=== PATIENT | female | born 2000 | race African-American/Black ===

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

== ENCOUNTER 2021-03-19 13:37 | Emergency (ER) | payer MEDICAID ==
[~2021-03-19] VITALS: Ht 160 cm; Wt 50.0 kg
[2021-03-19] MEDS ORDERED: ASPIRIN CHEWABLE 81 MG TABLET. PO ONE (13:45)
[2021-03-19 14:02] LABS: BILIRUBIN,URINE NEGATIVE (NEG); CLARITY,URINE CLEAR; COLOR,URINE YELLOW; NITRITE,URINE NEGATIVE (NEG); PH,URINE 6.5 (<5.0-8.0); PROTEIN,URINE NEGATIVE (NEG-TRACE)
--- NOTE | 2021-03-19 14:07 | EKG ---
[facility] [address] [place] [address] Test Date: 2021-03-19 Test Time: 13:56:45 Pat Name: WILLI HICKS Department: Room: Gender: F Hosted Services Analyst: : 2000 Requested By: SÁNCHEZ HOLDER Order Number: [id number] Reading MD: Measurements Intervals [place] Rate: 83 P: 31 CA: 154 QRS: 80 QRSD: 72 T: 24 QT: 342 QTc: 402 Interpretive Statements SINUS RHYTHM T ABNORMALITY IN ANTEROLATERAL LEADS ABNORMAL ECG RI6.02 No previous ECG available for comparison
[2021-03-19 14:08] LABS: BARBITURATES NEG (NEG); BENZODIAZEPINES NEG (NEG); CANNABINOIDS POS (NEG); COCAINE NEG (NEG); METHADONE NEG (NEG); OPIATES NEG (NEG); PHENCYCLIDINE NEG (NEG)
[2021-03-19 14:11] LABS: AMPHETAMINE/METHAMPHETAMINE NEG (NEG)
[2021-03-19] MEDS ORDERED: KETOROLAC 15 MG/ML VIAL. IVP ONE (14:15)
[2021-03-19] MEDS ORDERED: ACETAMINOPHEN 500 MG TABLET PO ONE (14:15)
--- NOTE | 2021-03-19 14:15 | PHYS DOC ---
Past Medical History Past Medical History: Asthma Past Surgical History: No Surgical History Smoking Status: Never Smoker Alcohol Use: None Drug Use: None General Adult EDM: Chief Complaint: COUGH HPI: HPI: Patient is a 20 year old female who presents with 7 to 10 days of shortness of breath, cough, chest pain with cough, headache, fever, body aches. She was tested a week ago for Covid and it was negative. She is not vaccinated. She has a history of asthma. She does have an inhaler that she uses as needed. She is not taking anything for her symptoms. She is febrile upon arrival. Rates her pain a 10 out of 10. Denies syncope, dizziness, vision change, focal weakness, numbness or tingling, abdominal pain, nausea, vomiting, diarrhea. Review of Systems: Review of Systems: Constitutional: +fever or +chills. [] Eyes: Denies change in visual acuity. [] HENT: Denies nasal congestion or sore throat. [] Respiratory: + cough or +shortness of breath. [] Cardiovascular: Denies chest pain or edema. [] GI: Denies abdominal pain, nausea, vomiting, bloody stools or diarrhea. [] : Denies dysuria. [] Musculoskeletal: Denies back pain or joint pain. + Generalized body aches [] Integument: Denies rash. [] Neurologic: +headache, denies focal weakness or sensory changes. [] Endocrine: Denies polyuria or polydipsia. [] Lymphatic: Denies swollen glands. [] Psychiatric: Denies depression or anxiety. [] Heart Score: C/O Chest Pain: Yes Risk Factors: Risk Factors: DM, Current or recent (<one month) smoker, HTN, HLP, family history of CAD, obesity. Risk Scores: Score 0 - 3: 2.5% MACE over next 6 weeks - Discharge Home Score 4 - 6: 20.3% MACE over next 6 weeks - Admit for Clinical Observation Score 7 - 10: 72.7% MACE over next 6 weeks - Early Invasive Strategies Current Medications: Current Medications Medications (Trade) Dose Ordered Sig/Lily Start Time Stop Time Status Last Admin Dose Admin Acetaminophen (Tylenol) 1,000 mg 1X ONCE 03/19/21 14:15 03/19/21 14:16 Aspirin (Aspirin Chewable) 324 mg 1X ONCE 03/19/21 13:45 03/19/21 13:57 DC Ketorolac Tromethamine (Toradol 15mg Vial) 15 mg 1X ONCE 03/19/21 14:15 03/19/21 14:16 UNV Allergies: Allergies: Allergies Coded Allergies Type Severity Reaction Last Updated Verified No Known Drug Allergies 01/24/14 No Physical Exam: PE: Constitutional: Well developed, well nourished, no acute distress, non-toxic appearance. [] HENT: Normocephalic, atraumatic, bilateral external ears normal, oropharynx moist, no oral exudates, nose normal. [] Eyes: PERRLA, EOMI, conjunctiva normal, no discharge. [] Neck: Normal range of motion, no tenderness, supple, no stridor. [] Cardiovascular:Heart rate regular rhythm, no murmur [] Lungs & Thorax: Bilateral upper breath sounds clear lower diminished to auscultation [] Abdomen: Bowel sounds normal, soft, no tenderness, no masses, no pulsatile masses. [] Skin: Warm, dry, no erythema, no rash. [] Back: No tenderness, no CVA tenderness. [] Extremities: No tenderness, no cyanosis, no clubbing, ROM intact, no edema. [] Neurologic: Alert and oriented X 3, normal motor function, normal sensory function, no focal deficits noted. [] Psychologic: Affect normal, judgement normal, mood normal. [] Current Patient Data: Labs: Laboratory Tests Test 03/19/21 13:49 POC Urine HCG, Qualitative Hcg negative (Negative) Vital Signs: Vital Signs Date Time Temp Pulse Resp B/P (MAP) Pulse Ox O2 Delivery O2 Flow Rate FiO2 03/19/21 13:51 100.7 89 18 121/69 (86) 100 Room Air 100.7 EKG: EK and read by Dr. Patel as sinus rhythm and no STEMI Radiology/Procedures: Radiology/Procedures: [] Impression: [facility] [address] [place] [address] IMAGING REPORT Signed PATIENT: WILLI HICKS RACCOUNT: [id number] : 2000 LOCATION: ER AGE: 20 SEX: F EXAM STATUS: REG ER ORD. PHYSICIAN: SÁNCHEZ HOLDER APRN REASON: chest pain, PROCEDURE: PORTABLE CHEST 1V EXAM: Chest, single view. HISTORY: Chest pain. COMPARISON: 01/26/2017 FINDINGS: A frontal view of the chest is obtained. There is no infiltrate, ple ural effusion or pneumothorax. The heart is normal in size. IMPRESSION: No acute pulmonary finding. Electronically signed by: Mgadalena Mayer MD (03/19/2021 2:34 PM) [id number] DICTATED and SIGNED BY: MAGDALENA MAYER MD DATE: 03/19/21 [id number] Course & Med Decision Making: Course & Med Decision Making Pertinent Labs and Imaging studies reviewed. (See chart for details) COVID-19 CRITERIA: The patient was evaluated during the global COVID-19 pandemic, and that diagnosis was suspected/considered upon their initial presentation. Their evaluation, treatment and testing was consistent with current guidelines for patients who present with complaints or symptoms that may be related to COVID-19. See HPI. Alert and oriented x4. Ambulatory steady gait. Speaks in full persons. Abdomen soft and nontender. No CVA tenderness. Throat is pink without exudates or swelling. Lungs are clear in upper lobes and diminished in lower lobes. PERRLA. Skin pink warm and dry. Mucous membranes moist. Febrile. Patient states she has not been taking any medications to help her symptoms. X-ray shows no acute findings. Patient's magnesium is low and I will replace that here in the ED. Rapid influenza and Covid came back negative. Patient will be sent home with a Medrol Dosepak and azithromycin. [] Nanette Disclaimer: Nanette Disclaimer: This electronic medical record was generated, in whole or in part, using a voice recognition dictation system. COVID-19 Patient Risks: Age 65 or older: No Sign of co-morbidity: Yes Exp to person + for COVID: No Exp to PUI: No Travel from affected area: No Lower respiratory symptoms: Yes Fever: Yes Other: Yes (headache) PPE Use: Full PPE with N95 mask or PAPR: Yes Departure Departure Impression: Primary Impression: Upper respiratory infection Qualified Codes: J06.9 - Acute upper respiratory infection, unspecified Additional Impression: Hypomagnesemia Disposition: 01 HOME / SELF CARE / HOMELESS Condition: STABLE Referrals: NO PCP (PCP) Patient Instructions: Hypomagnesemia, Upper Respiratory Infection, Adult Additional Instructions: Follow-up with your primary care provider in the next week or so. Take medication as prescribed and with food. Take Tylenol and ibuprofen regularly to help with any pain and to relieve fever. Drink plenty of fluids to stay hydrated. If you begin having severe shortness of breath, vomiting or severe chest pain return to emergency room. Begin taking a multivitamin daily with food. Scripts Albuterol Sulfate (PROAIR HFA INHALER) 8.5 Gm Hfa.aer.ad 1 PUFF INH PRN Q6HRS PRN for SHORTNESS OF BREATH, #1 EACH 0 Refills Prov: SÁNCHEZ HOLDER APRN 03/19/21 Azithromycin (AZITHROMYCIN TABLET) 250 Mg Tablet 1 PKG PO UD for 5 Days, #6 TAB 0 Refills 2 the first day followed by 1 for days 2-5 Prov: SÁNCHEZ HOLDER APRN 03/19/21 Methylprednisolone (MEDROL) 4 Mg Tab.ds.pk 1 PKG PO UD, #1 PKG Prov: SÁNCHEZ HOLDER WELDER AND FITTER 03/19/21 SÁNCHEZ HOLDER APRN Mar 19, 2021 14:15
[2021-03-19 14:16] LABS: BACTERIA,URINE FEW /HPF (0-FEW); RBC,URINE OCC /HPF (0-2)
[2021-03-19 14:18] LABS: YEAST,URINE PRESENT /HPF
[2021-03-19 14:30] LABS: BASO % 0 % (0-3); EOS # 0.1 x10^3/uL (0.0-0.7); EOS % 1 % (0-3); HEMATOCRIT 39.4 % (36.0-47.0); HEMOGLOBIN 13.1 g/dL (12.0-15.5); LYMPH # 0.3 x10^3/uL (1.0-4.8); LYMPH % 7 % (24-48); MEAN CORPUSCULAR HEMOGLOBIN 30 pg (25-35); MEAN CORPUSCULAR HGB CONC 33 g/dL (31-37); MEAN CORPUSCULAR VOLUME 91 fL (79-100); MONO # 0.6 x10^3/uL (0.0-1.1); MONO % 13 % (0-9); NEUT # 3.7 x10^3/uL (1.8-7.7); NEUT % 78 % (31-73); PLATELET COUNT 143 x10^3/uL (140-400); RED BLOOD COUNT 4.31 x10^6/uL (3.50-5.40); RED CELL DISTRIBUTION WIDTH 13.4 % (11.5-14.5); WHITE BLOOD COUNT 4.7 x10^3/uL (4.0-11.0)
--- NOTE | 2021-03-19 14:36 | RAD ---
EXAM: Chest, single view. HISTORY: Chest pain. COMPARISON: 01/26/2017 FINDINGS: A frontal view of the chest is obtained. There is no infiltrate, pleural effusion or pneumo thorax. The heart is normal in size. IMPRESSION: No acute pulmonary finding. Electronically signed by: Magdalena Morgan MD (03/19/2021 2:34 PM) [id number]
[2021-03-19] MEDS ORDERED: IV NORMAL SALINE 1000ML BAG 1,000 ML IV ONE (14:45)
[2021-03-19 14:47] LABS: CALCIUM 9.1 mg/dL (8.5-10.1); CREATININE 0.8 mg/dL (0.6-1.0); GFR 111.8; POTASSIUM 3.7 mmol/L (3.5-5.1)
[2021-03-19 14:53] LABS: ALBUMIN 4.2 g/dL (3.4-5.0); ALBUMIN/GLOBULIN RATIO 1.3 (1.0-1.7); MAGNESIUM 1.5 mg/dL (1.8-2.4); TOTAL PROTEIN 7.5 g/dL (6.4-8.2)
[2021-03-19 14:56] LABS: % BANDS 3 % (0-9); % BASOS 2 % (0-3); % LYMPHS 9 % (24-48); % MONOS 13 % (0-10); % SEGS 73 % (35-66); PLT ESTIMATE ADEQUATE (ADEQUATE)
[2021-03-19 15:01] LABS: INFLUENZA A PATIENT NEGATIVE (NEGATIVE); INFLUENZA B PATIENT NEGATIVE (NEGATIVE)
[2021-03-19] MEDS ORDERED: AZIT250T6 PO (15:12)
[2021-03-19] MEDS ORDERED: METH4TAB2 PO (15:12)
[2021-03-19] MEDS ORDERED: MAGNESIUM SULFATE 2GM 50 ML IV ONE (15:15)
[2021-03-19] MEDS ORDERED: ALBU2.5V8 INH (15:17)
[2021-03-19 15:22] VITALS: BP 120/69
--- NOTE | 2021-03-20 15:59 | NUR ---
IP: Informed pt of negative covid test. Pt verbalized understanding.
== END 2021-03-19 16:18 | disposition home or self-care (01) ==
LOC: ER 13:37
DX: J06.9 Acute upper respiratory infection, unspecified (principal); Z20.822 Contact with and (suspected) exposure to COVID-19; E83.42 Hypomagnesemia; J45.909 Unspecified asthma, uncomplicated
CPT/HCPCS: 36415; 71045; 80053; 80307; 81001; 81025; 83690; 83735; 83880; 84484; 85007; 85025; 87426; 87804; 93005; 96361; 96365; 96375; 99285; J1885; J3475; J7030; U0003; U0005